=== PATIENT | male | born 1975 | race Caucasian/White ===

== ENCOUNTER 2017-03-11 07:15 | Day surgery (SDC) | payer BC ==
[2017-03-11] MEDS ORDERED: PROPOFOL 500 MG/50 ML EMU IV ONE (07:23)
[2017-03-11] MEDS ORDERED: LIDOCAINE HCL 1% MPF SOL ONE (07:24)
[2017-03-11 09:20] VITALS: TEMP 97
[2017-03-11 09:31] VITALS: O2SAT 98
[2017-03-11 09:41] VITALS: RESP 20
[2017-03-11 09:55] VITALS: BP 114/82; PULSE 71
== END 2017-03-11 10:25 | disposition home or self-care (01) ==
LOC: SURG 07:15
PROVIDERS: ATTEND Internal Medicine Gastroenterology
DX: Z80.0 Family history of malignant neoplasm of digestive organs (principal); K57.30 Diverticulosis of large intestine without perforation or abscess without bleeding; K64.8 Other hemorrhoids; D12.3 Benign neoplasm of transverse colon
CPT/HCPCS: 45381; 45385; 99001; J2001; J2704